=== PATIENT | female | born 1975 | race African-American/Black ===

== ENCOUNTER 2025-08-21 09:04 | Emergency (ER) | payer OTHER ==
[~2025-08-21] VITALS: Ht 165.1 cm; Wt 70.0 kg
[2025-08-21 09:07] VITALS: O2SAT 100
[2025-08-21 10:06] LABS: BASOPHILS % 1.1 % (0.0-2.0); EOSINOPHILS % 0.6 % (0.0-5.0); HEMATOCRIT. 32.7 % (36.0-48.0); HEMOGLOBIN. 10.1 g/dL (12.0-16.0); LYMPHOCYTES % 26.9 % (20.0-50.0); MEAN PLATELET VOLUME 9.1 fl (7.4-10.4); MONOCYTES % 10.0 % (2.0-8.0); NEUTROPHILS % 61.4 % (40.0-76.0); PLATELET 312 x1000/uL (130-400); RED BLOOD CELL COUNT 4.15 mill/uL (4.2-5.4); RED CELL DISTRIBUTION WIDTH 18.8 % (11.6-14.6)
[2025-08-21 10:40] LABS: HCG SCREEN NEGATIVE
[2025-08-21 10:41] LABS: CREATININE 1.0 mg/dL (0.6-1.0); UREA NITROGEN BLOOD 14 mg/dL (9-23)
[2025-08-21 10:42] LABS: ETHANOL BLOOD < 10 mg/dL (<10)
[2025-08-21 11:15] LABS: CLARITY URINE CLOUDY (CLEAR); COLOR URINE BLOODY (YELLOW)
[2025-08-21 11:24] LABS: PH URINE 5.5 (4.5-8.0); PROTEIN URINE 3+ (NEGATIVE); SPECIFIC GRAVITY URINE 1.034 (1.005-1.030)
[2025-08-21 11:26] LABS: GLUCOSE URINE NEGATIVE (NEGATIVE)
[2025-08-21 11:27] LABS: KETONES URINE 2+ (NEGATIVE); LEUKOCYTE ESTERASE URINE TRACE (NEGATIVE); NITRITE URINE NEGATIVE (NEGATIVE); OCCULT BLOOD URINE 3+ (NEGATIVE); UROBILINOGEN URINE 1.0 E.U./dL (0.2-1.0)
[2025-08-21] MEDS: POTASSIUM CHLORIDE 20MEQ/PACKET PO ONE (11:29)
[2025-08-21 11:32] LABS: RBC URINE TNTC /hpf (0-2)
[2025-08-21 11:36] LABS: WBC URINE 25-50 /hpf (0-2)
[2025-08-21 11:38] LABS: SQUAMOUS EPITHELIAL CELL URINE 2+ /lpf (RARE/1+)
[2025-08-21 11:39] LABS: BACTERIA URINE 4+
[2025-08-21] MEDS: OLANZAPINE 5MG TABLET PO SCH (11:41)
[2025-08-21] MEDS: SERTRALINE HCL 25MG TABLET PO SCH (11:41)
[2025-08-21 11:52] LABS: *AMPHETAMINES SCREEN URINE PRESUMPTIVE POSITIVE (NEGATIVE)
[2025-08-21 11:53] LABS: *BARBITURATES SCREEN URINE NEGATIVE (NEGATIVE); *BENZODIAZEPINES SCREEN URINE NEGATIVE (NEGATIVE); *COCAINE SCREEN URINE PRESUMPTIVE POSITIVE (NEGATIVE); CANNABINOID URINE SCREEN PRESUMPTIVE POSITIVE (NEGATIVE); ECSTASY MDMA SCREEN URINE CONF.TEST INDICATED (NEGATIVE); METHADONE URINE SCREEN NEGATIVE (NEGATIVE); OPIATES URINE SCREEN NEGATIVE (NEGATIVE); PHENCYCLIDINE URINE SCREEN PRESUMTIVE POSITIVE (NEGATIVE)
[2025-08-21 13:10] VITALS: BP 138/98; PULSE 87; RESP 18; TEMP 36.7; O2SAT 100
[2025-08-21] MEDS ORDERED: CEFP100T8 MT (13:24)
[2025-08-21] MEDS ORDERED: QUET25TA MT (13:24)
== END 2025-08-21 13:31 | disposition home or self-care (01) ==
LOC: ER 09:04
DX: R44.0 Auditory hallucinations (principal); N39.0 Urinary tract infection, site not specified; E87.6 Hypokalemia; F19.10 Other psychoactive substance abuse, uncomplicated; Z79.899 Other long term (current) drug therapy; Z76.0 Encounter for issue of repeat prescription; Z20.822 Contact with and (suspected) exposure to COVID-19
CPT/HCPCS: 36415; 80048; 80305; 80307; 80320; 80329; 81003; 84703; 85025; 87077; 87186; 87426; 99291; G0480